=== PATIENT | male | born 1970 | race Caucasian/White ===

== ENCOUNTER 2018-06-04 10:45 | Emergency (ER) | payer SELFPAY ==
[2018-06-04 10:53] VITALS: BP 121/80; PULSE 111; RESP 16; TEMP 36.4; O2SAT 94
--- NOTE | 2018-06-04 11:35 | DI.RAD_ITS ---
SYMPTOMS/DIAGNOSIS: COUGH, FEVER CHEST X-RAY. PA AND LATERAL: No priors. The heart is normal in size. The lungs are clear. The mediastinal structures and pleura appear intact. IMPRESSION: Normal chest.
--- NOTE | 2018-06-04 11:35 | W.ED.GENAD ---
Discharge Plan Disposition Patient Disposition: HOME Condition: Stable Discharge Details Chief Complaint: RespSymp Clinical Impression: Infection, respiratory tract Primary Care Provider: None,None ED Provider: Dilan Landeros Home Meds and New Rx's Prescriptions: New doxycycline hyclate 100 mg capsule 100 mg PO BID Qty: 14 RF: 0 benzonatate 200 mg capsule 200 mg PO TID PRN (Reason: cough) Qty: 30 RF: 0 ondansetron 4 mg tablet,disintegrating 4 mg PO TID PRN (Reason: nausea and vomiting) Qty: 6 RF: 0 Continued loratadine [Claritin] 10 mg Tablet 10 mg PO DAILY RF: 0 Discharge Instructions Instructions: Cold Symptoms (ED) Additional Instructions: If you begin having any shortness of breath that is worsening, return of high fevers, difficulty breathing, or any other concerns feel free to return to emergency department for reassessment otherwise take antibiotics as prescribed and for the full 7 days and if not improving in that time follow-up with your primary care provider for reassessment Stand Alone Forms: Work Release Discharge Data Discharge Date/Time-TO BE ENTERED AT DEPARTURE: 06/04/18 13:00 Medical Decision Making URI 4 days, focal rhonchi right lower lobe, tachycardic and slightly hypoxic. Plan to perform influenza testing, chest x-ray, and give a liter of IV fluids. Doubt PE at this time given URI type illness. Chest x-ray interpreted as negative, influenza negative. Patient's heart rate did improve after fluids. Heart rate now in the mid 90s with O2 sat of 97% on room air. Given focal lung findings on exam with complaint of cough and recent fever I do feel that patient does warrant antibiotics given that this may be viral I do feel that it would be beneficial for patient recovery. Patient placed on doxycycline twice daily for 1 week and prescribed Tessalon Perles. return precautions discussed. After discussion of diagnosis and plan of care patient has no further needs, questions, or concerns and states clear understanding to return to the emergency department for any worsening symptoms. HPI General Mode of arrival: ambulatory. Date/Time Provider Initiated Documentation: 06/04/18 11:18. Limitations to Documentation: no limitations. Information obtained by: patient and RN notes reviewed. History of Present Illness 47 year old M presents to the emergency department with the chief complaint of cough fever, described as moderate, with intensity rated at 5. Quality is described as aching (body aches), Patient started experiencing this day(s) (4) and it has been constant. No relieving factors improve symptom(s), Patient did receive the following treatments prior to arrival, none Related Data Home Medications Medication Instructions Recorded Confirmed benzonatate 200 mg PO TID PRN #30 cap 06/04/18 doxycycline hyclate 100 mg PO BID #14 cap 06/04/18 loratadine [Claritin] 10 mg PO DAILY 06/04/18 06/04/18 ondansetron 4 mg PO TID PRN #6 tab 06/04/18 Previous Rx's Medication Instructions Recorded benzonatate 200 mg PO TID PRN #30 cap 06/04/18 doxycycline hyclate 100 mg PO BID #14 cap 06/04/18 ondansetron 4 mg PO TID PRN #6 tab 06/04/18 Allergies Allergy/AdvReac Type Severity Reaction Status Date / Time No Known Allergies Allergy Unverified 06/04/18 10:57 General Stated Complaint: RespSymp MAYURI: 4 Review of Systems Constitutional Reports body ache(s), Reports chills, Reports fever(s), Reports headache(s) and Reports malaise Eyes Denies eye discharge ENT Reports as per HPI, Denies ear discharge, Denies otalgia, Reports headache(s), Reports nasal congestion, Reports nasal discharge, Denies neck pain, Reports sinus pain, Reports sinus pressure, Reports sore throat and Denies throat swelling Cardiovascular Denies chest pain and Denies dyspnea Respiratory Reports cough, Reports pain with cough and Denies dyspnea Gastrointestinal Denies abdominal pain, Denies diarrhea, Reports nausea and Reports vomiting Musculoskeletal Denies joint swelling and Denies neck pain Integumentary/Breasts Denies rash Neurologic Reports headache(s) Allergic/Immunologic Denies throat swelling [facility] Social History Smoking and Tabacco status: Never Exam Const General: cooperative, comfortable and no acute distress Orientation: alert and awake [facility] Head: normal to inspection, normocephalic and atraumatic Ears: hearing grossly normal bilaterally and TM's normal bilaterally General nose exam: external nose normal Face and sinus: normal facial exam, sinuses nontender and no erythema Mouth: oral mucosae normal, no drooling, no muffled voice and no trismus Throat: posterior oropharynx normal Neck Neck: normal visual inspection, full ROM, no lymphadenopathy, no meningeal signs, trachea midline and supple Resp Effort & Inspection: normal respiratory effort, able to speak in complete sentences and cough Quality of cough: dry Auscultation: rhonchi right lower Cardio Rate: regular rate Rhythm: regular rhythm Heart Sounds: S1 normal, S2 normal, normal S1 and S2, no click, no gallops, no murmurs and no rubs Skin General skin exam: no rashes or lesions noted and dry skin (warm) Neuro General: alert, awake, oriented x3, gait normal and moves all extremities Cognition: normal cognition Speech: speech normal Course Vital Signs Temperature 36.4 C L 06/04/18 10:53 Pulse 111 H 06/04/18 10:53 Respiratory Rate 16 06/04/18 10:53 Blood Pressure 121/80 06/04/18 10:53 Pulse Oximetry 94 L 06/04/18 10:53 Temperature 36.4 C L 06/04/18 10:53 Temperature Source Skin 06/04/18 10:53 Pulse 111 H 06/04/18 10:53 Respiratory Rate 16 06/04/18 10:53 Respiratory Effort Non-Labored 06/04/18 10:59 Respiratory Depth Normal 06/04/18 10:59 Blood Pressure 121/80 06/04/18 10:53 Blood Pressure Position Sitting 06/04/18 10:53 Pulse Oximetry 94 L 06/04/18 10:53 Oxygen Delivery Method Room Air 06/04/18 10:53 Oxygen Flow Rate 0 06/04/18 10:53 Pain Level 5 06/04/18 10:53
[2018-06-04] MEDS: Normal Saline 1,000 ML 1000 ML IV (11:49)
--- NOTE | 2018-06-04 12:23 | DI.VRAD_ITS ---
EXAM: XR Chest, 2 Views EXAM DATE/TIME: 06/04/2018 11:37 AM CLINICAL HISTORY: 47 years old, male; Signs and symptoms; Other: Cough fever TECHNIQUE: XR of the chest, 2 views. COMPARISON: No relevant prior studies available. FINDINGS: Lungs: Unremarkable. No consolidation. Pleural space: Unremarkable. No pleural effusion. No pneumothorax. Heart/Mediastinum: Unremarkable. No cardiomegaly. Bones/joints: Levoscoliosis. Mild thoracic spondylosis. IMPRESSION: No acute findings. Dictated and Authenticated by: Rafael Briones MD. Ordering:KOBE Kong MD
[2018-06-04] MEDS: Doxycycline Hyclate 100 MG CAP PO (12:45)
[2018-06-04 13:05] VITALS: BP 127/80; PULSE 98; RESP 16; TEMP 36.4
== END 2018-06-04 13:00 | disposition home or self-care (01) ==
PROVIDERS: Emergency Provider Nurse Practitioner Family
DX: J06.9 Acute upper respiratory infection, unspecified (principal)
CPT/HCPCS: 87449; 96360; 99283; 71046